=== PATIENT | male | born 1990 | race Caucasian/White ===

== ENCOUNTER 2016-05-02 02:50 | Emergency (ER) | payer OTHER, SELFPAY ==
[2016-05-02] MEDS ORDERED: Sulfameth/Trimethoprim DS 800-160mg TAB ONE (03:12)
[2016-05-02] MEDS ORDERED: Ibuprofen 800 MG TAB ONE (03:12)
--- NOTE | 2016-05-02 03:35 | ERRECORD ---
[facility] EMERGENCY RECORD HPI CELLULITIS (03:14 [facility]) CHIEF COMPLAINT: Patient presents for evaluation of pain, Patient presents for evaluation of swelling. HISTORIAN: History provided by patient, 25M presents with two days of worsening pain and swelling along cleft edge of left buttock. 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 Denies fever, denies change in bowel habits. MECHANISM: Possible mechanism not seen. LOCATION: Symptoms are localized, most severe in the buttock, on the left. TIME COURSE: Gradual onset of symptoms, Symptoms are worsening. ASSOCIATED WITH: No associated symptoms. COMPLICATING FACTORS: No complicating factors. EXACERBATED BY: Patient's condition exacerbated by nothing. RELIEVED BY: Patient's condition relieved by nothing because patient has not tried anything for relief. ROS (03:17 [facility]) CONSTITUTIONAL: Negative constitutional review of systems, Historian denies chills, denies fever. EYES: Negative eye review of systems, Historian denies eye pain, denies eye discharge, denies vision changes. ENT: Negative ears, nose, throat review of systems, Historian denies rhinorrhea, denies sore throat. CARDIOVASCULAR: Negative cardiovascular review of systems, Historian denies chest pain, denies palpitations. RESPIRATORY: Negative respiratory review of systems, Historian denies cough, denies shortness of breath. GI: Negative gastrointestinal review of systems, Historian denies abdominal pain, denies constipation, denies diarrhea, denies nausea, denies vomiting. GENITOURINARY MALE: Negative genitourinary review of systems, Historian denies dysuria, denies hematuria. MUSCULOSKELETAL: Negative musculoskeletal review of systems, Historian denies back pain, denies fall, denies injury, denies neck pain. SKIN: painful localized area of swelling in gluteal cleft. NEUROLOGIC: Negative neurologic review of systems, Historian denies headache. HEMO/LYMPHATIC: Normal hematologic/lymphatic system review, Historian denies abnormal blood clotting. PAST MEDICAL HISTORY (02:55 [facility]) MEDICAL HISTORY: No past medical history, Flu vaccine not up to date, Tetanus immunization up to date, Date of immunization: 2012, Pneumococcal vaccine not up to date. MALE SURGICAL HISTORY: Surgical history of tonsillectomy, Notes: AND ADENOIDS. PSYCHIATRIC HISTORY: No previous psychiatric history. &a-1R&a+25V*p+0X*w3255R*c202B*c15G*c2P*p-0X&a-25V&a+1R Name: Avinash Smith : 1990 M25 MedRec: [id number] AcctNum: [id number] Prepared: lynnette May 02, 2016 03:28 by Interface Page 1 of 3 pMD [facility] EMERGENCY RECORD SOCIAL HISTORY: Patient denies alcohol use, Patient denies drug use, Patient has no smoking history. FAMILY HISTORY: Family history is non-contributory to this case. KNOWN ALLERGIES No Known Drug Allergies CURRENT MEDICATIONS (02:54 [facility]) None VITAL SIGNS (02:54 [facility]) VITAL SIGNS: BP: 152/88, Pulse: 98, Resp: 18, Temp: 98.3 (Oral), Pain: 7, O2 sat: 99 on Room Air, Time: 05/02/2016 02:54. PHYSICAL EXAM (03:17 [facility]) CONSTITUTIONAL: Vital signs reviewed, Patient afebrile, Pulse normal, Blood pressure normal, Respiratory rate normal, Patient appears non toxic, Patient appears pain free, Patient alert and oriented to person, place and time. HEAD: Head exam normal, Head exam included findings of head atraumatic, normocephalic. EYES: Eye exam normal, Eye exam included findings of eyelids normal to inspection, Pupils equally round and reactive to light, Extraocular muscles intact, no nystagmus. ENT: ENT exam normal, Ear exam normal, external ear normal, tympanic membranes normal, no bleeding, Pharynx exam normal, Uvula exam normal, Tonsil exam normal, Mouth exam normal, mucous membranes moist, teeth normal. NECK: Neck exam normal, Neck exam included findings of normal range of motion, Trachea midline, no meningeal signs, no cervical adenopathy, no tenderness. RESPIRATORY CHEST: Respiratory and chest exam normal, Respiratory exam included findings of no respiratory distress, Breath sounds clear. CARDIOVASCULAR: Cardiovascular assessment normal, Cardiovascular exam included findings of heart rate regular rate and rhythm, Heart sounds normal. ABDOMEN MALE: Abdominal exam included findings of abdomen nontender, Bowel sounds normal, no distension, no mass, no pulsatile masses, no peritoneal signs, no rigidity, no guarding, no rebound, Rovsing's sign absent. BACK: Back exam normal, Back exam included findings of normal inspection, range of motion normal, no tenderness. UPPER EXTREMITY: Upper extremity exam normal, Upper extremity exam included findings of inspection normal, Range of motion normal, Motor strength normal, Sensation intact, Radial pulse normal. LOWER EXTREMITY: Lower extremity exam normal, Lower extremity exam included findings of inspection normal, Range of motion normal, Motor strength normal, Sensation intact, Posterior tibial pulse &a-1R&a+25V*p+0X*i9922V*c202B*c15G*c2P*p-0X&a-25V&a+1R Name: Avinash Smith : 1990 M25 MedRec: [id number] AcctNum: [id number] Prepared: Enedina May 02, 2016 03:28 by Interface Page 2 of 3 pMD [facility] EMERGENCY RECORD normal, Pedal pulse normal. NEURO: Neuro exam normal, Neuro exam findings include patient oriented to person, place and time, Speech normal, Gait normal. SKIN: Skin exam included findings of skin warm, dry, and normal in color, no rash, along left edge of gluteal cleft near proximal portion there is an area of induration and swelling that is tender to the touch. Non fluctuant to the touch, no surrounding erythema. PSYCHIATRIC: Psychiatric exam normal, Normal affect. MEDICATION ADMINISTRATION SUMMARY Drug Name: Bactrim DS, Dose Ordered: 1 tab(s), Route: Oral, Status: Given, Time: 03:05/02/2016, Drug Name: Motrin, Dose Ordered: 800 mg, Route: Oral, Status: Given, Time: 05/02/2016, Detailed record available in Medication Service section. DOCTOR NOTES (03:19 [facility]) TEXT: Patient presents with findings consistent with cellulitis. bedside ultrasound shows cobblestoning without fluid collection. No evidence of pilonidal cyst of other abscess. Will start antibiotics and anti-inflammatories, follow up with PMD. PATIENT STATUS: Patient has improved since arrival to emergency department. PATIENT PLAN: The patient will be discharged, The patient will follow up with primary care physician. PROBLEM LIST No recorded problems DIAGNOSIS (03:12 [facility]) FINAL: PRIMARY: CELLULITIS OF BUTTOCK. PRESCRIPTION (03:12 [facility]) Bactrim DS: TABLET : 800 mg-160 mg : ORAL : Quantity: 1 Unit: tab(s) Route: ORAL Schedule: 2 times a day (before meals) Dispense: 14 May substitute. Refills: No Refills . NOTES: No refills. DISPOSITION PATIENT: Disposition Type: Discharge, Disposition: *Discharge Home. (03:12 BOB) Patient left the department. (03:20 KP) Howard: BOB=MD Sana, Conor KMJ LUIS=SHAWN Marshall, Ana MVIL=SHAWN Brandt, Lanny &a-1R&a+25V*p+0X*i2987H*c202B*c15G*c2P*p-0X&a-25V&a+1R Name: Avinash Smith : 1990 M25 MedRec: [id number] AcctNum: [id number] Prepared: Enedina May 02, 2016 03:28 by Interface Page 3 of 3 pMD MTDD
--- NOTE | 2016-05-02 03:37 | PICIS ---
[facility] EMERGENCY RECORD TRIAGE (SunMay 02, 2016 02:53 [facility]) TRIAGE NOTES: Knot to tailbone, painful. (SunMay 02, 2016 02:53 [facility]) PATIENT: NAME: Avinash Smith, AGE: 25, GENDER: male, : [facility] 1990, TIME OF GREET: SunMay 02, 2016 02:50, PREFERRED LANGUAGE: Portuguese, ETHNICITY: Not or , ECODE BILLING MAP: [facility], SSN: [id number], Zip Code: [address], KG WEIGHT: 136.08, HEIGHT/LENGTH: 185.42cm, BMI: 39.58, , , PERSON ID: [id number], PCP: MD Kuhn Kia. (SunMay 02, 2016 02:53 [facility]) PHONE: . (03:10) COMPLAINT: Possible cyst. (SunMay 02, 2016 02:53 [facility]) ADMISSION: URGENCY: 4 Non Urgent, ADMISSION SOURCE: Home, TRANSPORT: CAR, BED: ER -02. (SunMay 02, 2016 02:53 [facility]) ASSESSMENT: Assessment: A&OX4. RR EVEN AND UNLABORED., Symptoms began 3 days ago. (02:55 [facility]) PAIN: Patient complains of pain described as, aching, deep, on a scale 0-10 patient rates pain as 8, Location TAILBONE. (02:55 [facility]) SIRS SCORING: Heart Rate 55-109 (0), Temp range 96.8-101.1 (0), respiratory rate 12-24 (0), Mental Status altered: no (0), Infection or Suspected Infection: No. (02:55 [facility]) TRIAGE SCREENING: Patient denies suicidal ideation, Patient denies presence of domestic violence. (02:55 [facility]) PROVIDERS: TRIAGE NURSE: Ana Marshall RN. (SunMay 02, 2016 02:53 [facility]) VITAL SIGNS: BP 152/88, Pulse 98, Resp 18, Temp 98.3, (Oral), Pain 7, O2 Sat 99, on Room Air, Time 05/02/2016 02:54. (02:54 [facility]) PREVIOUS VISIT ALLERGIES: No Known Drug Allergies. (SunMay 02, 2016 02:53 [facility]) No Known Drug Allergies. (02:55 [facility]) KNOWN ALLERGIES No Known Drug Allergies CURRENT MEDICATIONS (02:54 [facility]) None VITAL SIGNS (02:54 [facility]) VITAL SIGNS: BP: 152/88, Pulse: 98, Resp: 18, Temp: 98.3 (Oral), Pain: 7, O2 sat: 99 on Room Air, Time: 05/02/2016 02:54. NURSING ASSESSMENT: SKIN (03:08 [facility]) CONSTITUTIONAL: Patient arrives ambulatory, Gait steady, History obtained from patient, Patient appears comfortable, Patient cooperative, Patient alert, Oriented to person, place and time, Skin warm, Skin dry, Skin normal in color, Mucous membranes pink, Mucous membranes moist, Patient is well-groomed, Patient complains of AN AREA OF REDNESS AND SWELLING IN BETWEEN BUTTOCKS X 3 DAYS, PATIENT EVALUATED WITH BEDSIDE SONO BY DR. ALVARADO. NO ABSCESS &a-1R&a+25V*p+0X*x1217U*c202B*c15G*c2P*p-0X&a-25V&a+1R Name: Avinash Smith Tito : 1990 M25 MedRec: [id number] AcctNum: [id number] Prepared: SunMay 02, 2016 03:28 by Interface Page 1 of 6 pMD [facility] EMERGENCY RECORD NOTED. WILL BE TREATED WITH ANTIBIOTICS FOR SKIN INFECTION. PAIN: penetrating pain, pressure pain, Onset of pain 04/29/2016 03:11, constant, on a scale 0-10 patient rates pain as 5, Pain exacerbated by nothing, Nothing has been tried to alleviate the pain. SKIN: Skin assessment findings include skin warm, Skin dry, Skin normal in color, Inspection findings include redness, Inspection findings include signs of infection, to BETWEEN THE BUTTOCKS, Inspection findings include swelling, to BETWEEN THE BUTTOCKS. SAFETY: Side rails up, Cart/Stretcher in lowest position, Family at bedside, Call light within reach, Hospital ID band on. NURSING PROCEDURE: DISCHARGE NOTE (03:14 [facility]) DISCHARGE: Patient discharged to home, ambulating without assistance, family driving, accompanied by parent, Summary of Care printed/ provided, Patient requested and was provided an electronic copy of Discharge Instructions, Transition record given to patient, Discharge instructions given to patient, Prescriptions given and instructions on side effects given, Medication reconciliation form given, Above person(s) verbalized understanding of discharge instructions and follow-up care. BELONGINGS: Belongings and valuables with patient at time of discharge include:. MEDICATION ADMINISTRATION SUMMARY Drug Name: Bactrim DS, Dose Ordered: 1 tab(s), Route: Oral, Status: Given, Time: 03:05/02/2016, Drug Name: Motrin, Dose Ordered: 800 mg, Route: Oral, Status: Given, Time: 03:05/02/2016, Detailed record available in Medication Service section. MEDICATION SERVICE ( [facility]) Bactrim DS: Order: Bactrim DS (sulfamethoxazole/trimethoprim) - Dose: 1 tab(s) : Oral Ordered by: Conor Alvarado MD Entered by: Conor Alvarado MD SunMay 02, 2016 03:11 Documented as given by: Lanny Brandt RN SunMay 02, 2016 03:13 Patient, Medication, Dose, Route and Time verified prior to administration. Amount given: 1 TAB, Correct patient, time, route, dose and medication confirmed prior to administration, Patient advised of actions and side-effects prior to administration, Allergies confirmed and medications reviewed prior to administration, Patient in position of comfort, Side rails up, Cart in lowest position, Family at bedside. Motrin: Order: Motrin (ibuprofen) - Dose: 800 mg : Oral &a-1R&a+25V*p+0X*v3030J*c202B*c15G*c2P*p-0X&a-25V&a+1R Name: Avinash Smith Tito : 1990 M25 MedRec: [id number] AcctNum: [id number] Prepared: SunMay 02, 2016 03:28 by Interface Page 2 of 6 D [facility] EMERGENCY RECORD Ordered by: Conor Alvarado MD Entered by: Conor Alvarado MD SunMay 02, 2016 03:11 Documented as given by: Lanny Brandt RN SunMay 02, 2016 03:13 Patient, Medication, Dose, Route and Time verified prior to administration. Amount given: 800MG, Correct patient, time, route, dose and medication confirmed prior to administration, Patient advised of actions and side-effects prior to administration, Allergies confirmed and medications reviewed prior to administration, Patient in position of comfort, Side rails up, Cart in lowest position, Family at bedside. HPI CELLULITIS (03:14 [facility]) CHIEF COMPLAINT: Patient presents for evaluation of pain, Patient presents for evaluation of swelling. HISTORIAN: History provided by patient, 25M presents with two days of worsening pain and swelling along cleft edge of left buttock. 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 Denies fever, denies change in bowel habits. MECHANISM: Possible mechanism not seen. LOCATION: Symptoms are localized, most severe in the buttock, on the left. TIME COURSE: Gradual onset of symptoms, Symptoms are worsening. ASSOCIATED WITH: No associated symptoms. COMPLICATING FACTORS: No complicating factors. EXACERBATED BY: Patient's condition exacerbated by nothing. RELIEVED BY: Patient's condition relieved by nothing because patient has not tried anything for relief. ROS (03:17 [facility]) CONSTITUTIONAL: Negative constitutional review of systems, Historian denies chills, denies fever. EYES: Negative eye review of systems, Historian denies eye pain, denies eye discharge, denies vision changes. ENT: Negative ears, nose, throat review of systems, Historian denies rhinorrhea, denies sore throat. CARDIOVASCULAR: Negative cardiovascular review of systems, Historian denies chest pain, denies palpitations. RESPIRATORY: Negative respiratory review of systems, Historian denies cough, denies shortness of breath. GI: Negative gastrointestinal review of systems, Historian denies abdominal pain, denies constipation, denies diarrhea, denies nausea, denies vomiting. GENITOURINARY MALE: Negative genitourinary review of systems, Historian denies dysuria, denies hematuria. MUSCULOSKELETAL: Negative musculoskeletal review of systems, Historian denies back pain, denies fall, denies injury, denies neck pain. SKIN: painful localized area of swelling in gluteal &a-1R&a+25V*p+0X*o7452Z*c202B*c15G*c2P*p-0X&a-25V&a+1R Name: Sarah Avinash D : 1990 M25 MedRec: [id number] AcctN: [id number] Prepared: Enedina May 02, 2016 03:28 by Interface Page 3 of 6 pMD [facility] EMERGENCY RECORD cleft. NEUROLOGIC: Negative neurologic review of systems, Historian denies headache. HEMO/LYMPHATIC: Normal hematologic/lymphatic system review, Historian denies abnormal blood clotting. PAST MEDICAL HISTORY (02:55 [facility]) MEDICAL HISTORY: No past medical history, Flu vaccine not up to date, Tetanus immunization up to date, Date of immunization: 2012, Pneumococcal vaccine not up to date. MALE SURGICAL HISTORY: Surgical history of tonsillectomy, Notes: AND ADENOIDS. PSYCHIATRIC HISTORY: No previous psychiatric history. SOCIAL HISTORY: Patient denies alcohol use, Patient denies drug use, Patient has no smoking history. FAMILY HISTORY: Family history is non-contributory to this case. PHYSICAL EXAM (03:17 [facility]) CONSTITUTIONAL: Vital signs reviewed, Patient afebrile, Pulse normal, Blood pressure normal, Respiratory rate normal, Patient appears non toxic, Patient appears pain free, Patient alert and oriented to person, place and time. HEAD: Head exam normal, Head exam included findings of head atraumatic, normocephalic. EYES: Eye exam normal, Eye exam included findings of eyelids normal to inspection, Pupils equally round and reactive to light, Extraocular muscles intact, no nystagmus. ENT: ENT exam normal, Ear exam normal, external ear normal, tympanic membranes normal, no bleeding, Pharynx exam normal, Uvula exam normal, Tonsil exam normal, Mouth exam normal, mucous membranes moist, teeth normal. NECK: Neck exam normal, Neck exam included findings of normal range of motion, Trachea midline, no meningeal signs, no cervical adenopathy, no tenderness. RESPIRATORY CHEST: Respiratory and chest exam normal, Respiratory exam included findings of no respiratory distress, Breath sounds clear. CARDIOVASCULAR: Cardiovascular assessment normal, Cardiovascular exam included findings of heart rate regular rate and rhythm, Heart sounds normal. ABDOMEN MALE: Abdominal exam included findings of abdomen nontender, Bowel sounds normal, no distension, no mass, no pulsatile masses, no peritoneal signs, no rigidity, no guarding, no rebound, Rovsing's sign absent. BACK: Back exam normal, Back exam included findings of normal inspection, range of motion normal, no tenderness. UPPER EXTREMITY: Upper extremity exam normal, Upper extremity exam included findings of inspection normal, Range of motion normal, Motor strength normal, Sensation intact, Radial pulse normal. &a-1R&a+25V*p+0X*c4218U*c202B*c15G*c2P*p-0X&a-25V&a+1R Name: Avinash Smith : 1990 M25 MedRec: [id number] AcctNum: [id number] Prepared: SunMay 02, 2016 03:28 by Interface Page 4 of 6 pMD [facility] EMERGENCY RECORD LOWER EXTREMITY: Lower extremity exam normal, Lower extremity exam included findings of inspection normal, Range of motion normal, Motor strength normal, Sensation intact, Posterior tibial pulse normal, Pedal pulse normal. NEURO: Neuro exam normal, Neuro exam findings include patient oriented to person, place and time, Speech normal, Gait normal. SKIN: Skin exam included findings of skin warm, dry, and normal in color, no rash, along left edge of gluteal cleft near proximal portion there is an area of induration and swelling that is tender to the touch. Non fluctuant to the touch, no surrounding erythema. PSYCHIATRIC: Psychiatric exam normal, Normal affect. EVENTS TRANSFER: Triage to Emergency Emergency Room -02. (SunMay 02, 2016 02:53 [facility]) Removed from Emergency Emergency Room -02. (03:20 [facility]) DOCTOR NOTES (03:19 [facility]) TEXT: Patient presents with findings consistent with cellulitis. bedside ultrasound shows cobblestoning without fluid collection. No evidence of pilonidal cyst of other abscess. Will start antibiotics and anti-inflammatories, follow up with PMD. PATIENT STATUS: Patient has improved since arrival to emergency department. PATIENT PLAN: The patient will be discharged, The patient will follow up with primary care physician. PROBLEM LIST No recorded problems DIAGNOSIS (03:12 [facility]) FINAL: PRIMARY: CELLULITIS OF BUTTOCK. DISPOSITION PATIENT: Disposition Type: Discharge, Disposition: *Discharge Home. (03:12 JJAC) Patient left the department. (03:20 [facility]) INSTRUCTION (03:13 [facility]) DISCHARGE: CELLULITIS. FOLLOWUP: MD Bam, Ke[place], [facility], [address], [facility] [address], [phone]. SPECIAL: Start antibiotics. 600-800mg of Motrin every 6 hours for pain, but not for more than 4 days in a row. Ring or Donut pillow for relief of pain while seated. Return to the ED or PMD if it gets worse instead of better. PRESCRIPTION (03:12 [facility]) Bactrim DS: TABLET : 800 mg-160 mg : ORAL : Quantity: 1 &a-1R&a+25V*p+0X*r7223P*c202B*c15G*c2P*p-0X&a-25V&a+1R Name: Avinash Smith : 1990 5 MedRec: [id number] AcctNum: [id number] Prepared: SunMay 02, 2016 03:28 by Interface Page 5 of 6 pMD [facility] EMERGENCY RECORD Unit: tab(s) Route: ORAL Schedule: 2 times a day (before meals) Dispense: 14 May substitute. Refills: No Refills . NOTES: No refills. IMAGING (03:19 [facility]) *DISCHARGE INSTRUCTIONS RECEIPT: Image captured from scanner. *SUPPLY CHARGE SHEET: Image captured from scanner. ADMIN (03:21 [facility]) DIGITAL SIGNATURE: MD Alvarado Jason. Howard: BOB=MD Alvarado Jason KMOR=SHAWN Marshall, Ana MVIL=SHAWN Brandt, Lanny &a-1R&a+25V*p+0X*h4906W*c202B*c15G*c2P*p-0X&a-25V&a+1R Name: Avinash Smith : 1990 5 MedRec: [id number] AcctNum: [id number] Prepared: SunMay 02, 2016 03:28 by Interface Page 6 of 6 pMD MTDD
== END 2016-05-02 03:15 | disposition home or self-care (01) ==
LOC: BURERS 02:50
DX: L03.317 Cellulitis of buttock (principal)
CPT/HCPCS: 99283

== ENCOUNTER 2016-05-04 00:39 | Emergency (ER) | payer SELFPAY ==
[2016-05-04] MEDS ORDERED: Lidocaine 1% 20 ML MDV ONE (01:49)
[2016-05-04] MEDS ORDERED: Amoxicillin/Potassium Clav 875 MG TAB ONE (02:10)
[2016-05-04] MEDS ORDERED: HYDROcodone/Acetaminophen 10/325 mg Tablet ONE (02:13)
--- NOTE | 2016-05-04 02:32 | ERRECORD ---
[facility] EMERGENCY RECORD HPI ABSCESS (02:07 [facility]) CHIEF COMPLAINT: Patient presents for evaluation of swelling, Patient presents for evaluation of pain. HISTORIAN: History provided by patient, seen here 48 hours ago with neg US for abscess and started on Bactrim ds. has noted increased redness swelling and pain. LOCATION: Symptoms are localized, most severe to gluteal cleft left side. QUALITY: Pain is dull in nature, described as aching. SEVERITY: Current severity of pain rated as 4/10. TIME COURSE: Gradual onset of symptoms, 3, Symptoms are worsening. ASSOCIATED WITH: No associated chills, Associated with drainage, No associated fever, Associated with warmth. COMPLICATING FACTORS: No complicating factors for wound healing. EXACERBATED BY: Patient's condition exacerbated by pressure in the area. RELIEVED BY: Patient's condition relieved by nothing. TETANUS: Tetanus status up to date. ROS (02:07 DHAM) CONSTITUTIONAL: Historian denies chills, denies fatigue, denies fever, reports night sweats. RESPIRATORY: Historian denies cough, denies shortness of breath, denies sputum. GI: Historian denies abdominal pain, denies diarrhea, denies nausea, denies vomiting. GENITOURINARY MALE: Historian denies dysuria, denies urinary frequency, denies urinary urgency. SKIN: Historian denies cellulitis, denies rash, reports skin changes, reports skin lesions. NEUROLOGIC: Historian denies headache, denies paresthesias. NOTES: All systems reviewed, negative except as described above. PAST MEDICAL HISTORY MEDICAL HISTORY: No past medical history, Flu vaccine not up to date, Tetanus immunization up to date, Pneumococcal vaccine not up to date. (00:56 MEGS) MALE SURGICAL HISTORY: Surgical history of tonsillectomy, Notes: AND ADENOIDS. verified with patient on 05/04/16. (00:56 MEGS) PSYCHIATRIC HISTORY: No previous psychiatric history. (00:56 MEGS) SOCIAL HISTORY: Patient drinks socially, once a month, Patient denies drug use, Patient has no smoking history, Lives at home, with family. (00:56 MEGS) FAMILY HISTORY: Family history is non-contributory to this case. (00:56 MEGS) NOTES: I have reviewed the nursing documentation regarding PMHX, social hx, family hx, and surgical history as well as vitals and triage notes and agree. (02:16 [facility]) &a-1R&a+25V*p+0X*b4621R*c202B*c15G*c2P*p-0X&a-25V&a+1R Name: Avinash Smith : 1990 M25 MedRec: [id number] AcctNum: [id number] Prepared: SunMay 04, 2016 05:28 by Interface Page 1 of 3 pMD [facility] EMERGENCY RECORD KNOWN ALLERGIES No Known Drug Allergies CURRENT MEDICATIONS (00:54 MEGS) Bactrim DS: TABLET : Strength - 800 mg-160 mg : ORAL Patient Dose: 1 tab(s) Oral 2 times a day (before meals). VITAL SIGNS VITAL SIGNS: BP: 130/74, Pulse: 102, Resp: 18, Temp: 99.3 (Oral), Pain: 8, O2 sat: 97 on Room Air, Time: 05/04/2016 00:52. (00:52 MEGS) BP: 112/67, Pulse: 92, Resp: 16, Temp: 99.3 (Oral), Pain: 4, O2 sat: 96 on Room Air, Time: 05/04/2016 01:46. (01:46 MEGS) PHYSICAL EXAM (02:07 [facility]) CONSTITUTIONAL: Vital signs reviewed, Patient afebrile, Pulse normal, Blood pressure normal, Respiratory rate normal, Patient appears non toxic, Patient appears in pain, in mild pain distress, Patient alert and oriented to person, place and time. RESPIRATORY CHEST: Breath sounds clear, No wheezing, No rales, No rhonchi. CARDIOVASCULAR: Cardiovascular exam included findings of heart rate regular rate and rhythm, Heart sounds normal, Point of maximal impulse normal. ABDOMEN MALE: Abdominal exam included findings of abdomen nontender, Bowel sounds normal, Liver normal, Spleen normal, no distension, no mass, no peritoneal signs. NEURO: Donya coma scale 15, Neuro exam findings include patient oriented to person, place and time, Speech normal, Gait normal, Cranial nerves intact. SKIN: Skin exam included findings of skin warm, dry, and normal in color, no rash, just to the left of the gluteal cleft has a 6x5cm tender, erythematous, indurated area. This appears to be a typical infected pilonidal cyst. PSYCHIATRIC: Psychiatric exam included findings of patient oriented to person place and time, Normal affect, Judgment normal, Insight normal. MEDICATION ADMINISTRATION SUMMARY Drug Name: *[place], Dose Ordered: 1 tab(s), Route: Oral, Status: Given, Time: 02:15 05/04/2016, Drug Name: Augmentin, Dose Ordered: 875 mg, Route: Oral, Status: Given, Time: 02:12 05/04/2016, *Additional information available in notes, Detailed record available in Medication Service section. PROBLEM LIST No recorded problems &a-1R&a+25V*p+0X*i9297O*c202B*c15G*c2P*p-0X&a-25V&a+1R Name: Avinash Smith Tito : 1990 M25 MedRec: [id number] AcctNum: [id number] Prepared: Judi May 04, 2016 05:28 by Interface Page 2 of 3 pMD [facility] EMERGENCY RECORD DIAGNOSIS (: [facility]) FINAL: PRIMARY: PILONIDAL CYST WITH ABSCESS. PRESCRIPTION (:17 [facility]) Augmentin: TABLET : 875 mg-125 mg : ORAL : Quantity: 1 Unit: tab(s) Route: ORAL Schedule: 2 times a day (with meals) Dispense: 20 Unit: tab(s) May substitute. Refills: No Refills . NOTES: No refills. DISPOSITION PATIENT: Disposition Type: Discharge, Disposition: *Discharge Home. (: [facility]) Patient left the department. (02: [facility]) Howard: OSMAR=MD Mariella, Raheel NIETOS=Dante RN, Gladys &a-1R&a+25V*p+0X*d8331Q*c202B*c15G*c2P*p-0X&a-25V&a+1R Name: Sarah Avinash D : 1990 M25 MedRec: [id number] AcctNum: [id number] Prepared: SunMay 04, 2016 05:28 by Interface Page 3 of 3 pMD MTDD
--- NOTE | 2016-05-04 02:38 | PICIS ---
[facility] EMERGENCY RECORD TRIAGE (SunMay 04, 2016 00:54 MEGS) TRIAGE NOTES: Patient complains of abscess for approx. 1 week. Patient reports being seen in ED for abscess on Sunday, was rx Bactrim. Patient has been taking medication as rx, abscess continues to increase in size and severity. (SunMay 04, 2016 00:54 MEGS) PATIENT: NAME: Avinash Smith, AGE: 25, GENDER: male, : Judi 1990, TIME OF GREET: SunMay 04, 2016 00:39, PREFERRED LANGUAGE: Russian, ETHNICITY: Not or , ECODE BILLING MAP: [facility], SSN: [id number], Zip Code: [address], KG WEIGHT: [phone], PHONE: , , , PERSON ID: [id number], PAYMENT: [employer] Self Pay, PCP: Unknown. (SunMay 04, 2016 00:54 MEGS) COMPLAINT: ABSCESS. (SunMay 04, 2016 00:54 MEGS) ADMISSION: URGENCY: 3 Urgent, ADMISSION SOURCE: Home, TRANSPORT: Walk-in, BED: ER -05. (SunMay 04, 2016 00:54 MEGS) ASSESSMENT: Assessment: Patient complains of abscess - mid buttocks., Symptoms began 1 week ago. (00:56 MEGS) PAIN: Patient complains of pain described as, throbbing, on a scale 0-10 patient rates pain as 8, Pain is constant. (00:56 MEGS) IMMUNIZATIONS: Flu vaccine not up to date, Tetanus immunization up to date, Pneumococcal vaccine not up to date. (00:56 MEGS) TRIAGE SCREENING: Patient denies suicidal ideation, Patient denies presence of domestic violence. (00:56 MEGS) TREATMENTS IN PROGRESS: Medications Given, Bactrim Motrin at 21:00. (00:56 MEGS) PROVIDERS: TRIAGE NURSE: Gladys Howell RN. (SunMay 04, 2016 00:54 MEGS) VITAL SIGNS: BP 130/74, Pulse 102, Resp 18, Temp 99.3, (Oral), Pain 8, O2 Sat 97, on Room Air, Time 05/04/2016 00:52. (00:52 MEGS) PREVIOUS VISIT ALLERGIES: No Known Drug Allergies. (SunMay 04, 2016 00:54 MEGS) No Known Drug Allergies. (00:56 MEGS) KNOWN ALLERGIES No Known Drug Allergies CURRENT MEDICATIONS (00:54 MEGS) Bactrim DS: TABLET : Strength - 800 mg-160 mg : ORAL Patient Dose: 1 tab(s) Oral 2 times a day (before meals). VITAL SIGNS VITAL SIGNS: BP: 130/74, Pulse: 102, Resp: 18, Temp: 99.3 (Oral), Pain: 8, O2 sat: 97 on Room Air, Time: 05/04/2016 00:52. (00:52 MEGS) BP: 112/67, Pulse: 92, Resp: 16, Temp: 99.3 (Oral), Pain: 4, O2 sat: 96 on Room Air, Time: 05/04/2016 01:46. (01:46 MEGS) NURSING ASSESSMENT: SKIN (00:56 MEGS) &a-1R&a+25V*p+0X*f5440O*c202B*c15G*c2P*p-0X&a-25V&a+1R Name: Avinash Smith : 1990 M25 MedRec: [id number] AcctNum: [id number] Prepared: SunMay 04, 2016 05:35 by Interface Page [address] [facility] EMERGENCY RECORD CONSTITUTIONAL: Patient arrives ambulatory, Gait steady, History obtained from patient, Patient appears, obese, uncomfortable, Patient cooperative, Patient alert, Oriented to person, place and time, Skin warm, Skin dry, Skin normal in color, Mucous membranes pink, Mucous membranes moist, Patient is well-groomed, Patient complains of pilonidal cyst, Patient has a pilonidal cyst; reports being seen at ED on Sunday - ultrasound performed and antibiotics prescribed. Cyst has worsen on the past 3 - 4 days with antibiotic treatment. PAIN: throbbing pain, constant, on a scale 0-10 patient rates pain as 8, Pain exacerbated by, sitting up, sitting upright, Nothing has been tried to alleviate the pain. SKIN: Skin assessment findings include skin warm, Skin dry, Skin normal in color, Inspection findings include: No pressure ulcer to the shoulder, Inspection findings include no pressure ulcer to the elbow, Inspection findings include no pressure ulcers to the hip, Inspection findings include no pressure ulcer to the sacrum, Inspection findings include no pressure ulcer to the heel, Inspection findings include no pressure ulcer, Inspection findings include redness, to sacrococcygeal area, Inspection findings include signs of infection, to sacrococcygeal area, cyst appears to be 10cm x 8 cm, Inspection findings include no signs of trauma, Inspection findings include swelling, to sacrococcygeal area. DEACON SCALE: (4) Sensory perception has no impairment, (3) Skin is occasionally moist, (4) Patient walks frequently, (4) No mobility limitations, (3) Adequate nutrition, (3) Patient has no apparent problem moving. SAFETY: Side rails up, Cart/Stretcher in lowest position, Call light within reach, Hospital ID band on. NURSING PROCEDURE: DISCHARGE NOTE (02:23 [facility]) DISCHARGE: Patient discharged to home, ambulating without assistance, family driving, accompanied by //partner, Discharge instructions given to patient, Discharge instructions given to , Prescriptions given and instructions on side effects given, Above person(s) verbalized understanding of discharge instructions and follow-up care, Patient treated and evaluated by physician. BELONGINGS: Belongings and valuables with patient at time of discharge include:, Belongings sent home with family member, Valuables sent home with family. SAFETY: Side rails up, Cart/Stretcher in lowest position, Family at bedside, Call light within reach, Hospital ID band on. ORDER DETAILS Order Name: Miscellaneous Nurse Order(s), Status: Done, Time: 01:58 05/04/2016, User: [facility], - Ordered for: MD Mariella, Raheel, &a-1R&a+25V*p+0X*u2430E*c202B*c15G*c2P*p-0X&a-25V&a+1R Name: Avinash Smith : 1990 M25 MedRec: [id number] AcctNum: [id number] Prepared: Judi May 04, 2016 05:35 by Interface Page [address] [facility] EMERGENCY RECORD - Entered by: SHAWN Howell, Gladys - Judi May 04, 2016 01:58, - Quantity: 1. MEDICATION ADMINISTRATION SUMMARY Drug Name: *Logan, Dose Ordered: 1 tab(s), Route: Oral, Status: Given, Time: 02:15 05/04/2016, Drug Name: Augmentin, Dose Ordered: 875 mg, Route: Oral, Status: Given, Time: 02:12 05/04/2016, *Additional information available in notes, Detailed record available in Medication Service section. MEDICATION SERVICE Augmentin: Order: Augmentin (amoxicillin trihydrate/potassium clavulanate) - Dose: 875 mg : Oral Schedule: Now Ordered by: Raheel Wolff MD Entered by: Raheel Wolff MD [facility] May 04, 2016 02:09 , Acknowledged by: Gladys Howell RN [facility] May 04, 2016 02:12 Documented as given by: Gladys Howell RN [facility] May 04, 2016 02:12 Patient, Medication, Dose, Route and Time verified prior to administration. Amount given: 875mg, Site: Medication administered P.O., Patient appears Awake and alert- acceptable, Correct patient, time, route, dose and medication confirmed prior to administration, Patient advised of actions and side-effects prior to administration, Allergies confirmed and medications reviewed prior to administration, Patient tolerated procedure well, Patient in position of comfort, Side rails up, Cart in lowest position, Family at bedside, Call light in reach. Logan: Order: Logan (hydrocodone bitartrate/acetaminophen) - Dose: 1 tab(s) : Oral Schedule: Now Notes: 10mg Ordered by: Raheel Wolff MD Entered by: Raheel Wolff MD [facility] May 04, 2016 02:13 , Acknowledged by: Gladys Howell RN [facility] May 04, 2016 02:15 Documented as given by: Gladys Howell RN [facility] May 04, 2016 02:15 Patient, Medication, Dose, Route and Time verified prior to administration. Verbal order read back and verified, Amount given: 10mg - 325mg, Site: Medication administered P.O., Patient appears Awake and alert- acceptable, Correct patient, time, route, dose and medication confirmed prior to administration, Patient advised of actions and side-effects prior to administration, Allergies confirmed and medications reviewed prior to administration, Patient tolerated procedure well, Patient in position of comfort, Side rails up, Cart in lowest position, Family at bedside, Call light in reach. HPI ABSCESS (02:07 [facility]) CHIEF COMPLAINT: Patient presents for evaluation of &a-1R&a+25V*p+0X*u2554V*c202B*c15G*c2P*p-0X&a-25V&a+1R Name: Avinash Smith : 1990 M25 MedRec: [id number] AcctNum: [id number] Prepared: SunMay 04, 2016 05:35 by Interface Page [address] [facility] EMERGENCY RECORD swelling, Patient presents for evaluation of pain. HISTORIAN: History provided by patient, seen here 48 hours ago with neg US for abscess and started on Bactrim ds. has noted increased redness swelling and pain. LOCATION: Symptoms are localized, most severe to gluteal cleft left side. QUALITY: Pain is dull in nature, described as aching. SEVERITY: Current severity of pain rated as 4/10. TIME COURSE: Gradual onset of symptoms, 3, Symptoms are worsening. ASSOCIATED WITH: No associated chills, Associated with drainage, No associated fever, Associated with warmth. COMPLICATING FACTORS: No complicating factors for wound healing. EXACERBATED BY: Patient's condition exacerbated by pressure in the area. RELIEVED BY: Patient's condition relieved by nothing. TETANUS: Tetanus status up to date. [facility] CONSTITUTIONAL: Historian denies chills, denies fatigue, denies fever, reports night sweats. RESPIRATORY: Historian denies cough, denies shortness of breath, denies sputum. GI: Historian denies abdominal pain, denies diarrhea, denies nausea, denies vomiting. GENITOURINARY MALE: Historian denies dysuria, denies urinary frequency, denies urinary urgency. SKIN: Historian denies cellulitis, denies rash, reports skin changes, reports skin lesions. NEUROLOGIC: Historian denies headache, denies paresthesias. NOTES: All systems reviewed, negative except as described above. PAST MEDICAL HISTORY MEDICAL HISTORY: No past medical history, Flu vaccine not up to date, Tetanus immunization up to date, Pneumococcal vaccine not up to date. (00:56 MEGS) MALE SURGICAL HISTORY: Surgical history of tonsillectomy, Notes: AND ADENOIDS. verified with patient on 05/04/16. (00:56 MEGS) PSYCHIATRIC HISTORY: No previous psychiatric history. (00:56 MEGS) SOCIAL HISTORY: Patient drinks socially, once a month, Patient denies drug use, Patient has no smoking history, Lives at home, with family. (00:56 MEGS) FAMILY HISTORY: Family history is non-contributory to this case. (00:56 MEGS) NOTES: I have reviewed the nursing documentation regarding PMHX, social hx, family hx, and surgical history as well as vitals and triage notes and agree. (02:16 [facility]) PHYSICAL EXAM (02:07 [facility]) &a-1R&a+25V*p+0X*r0840V*c202B*c15G*c2P*p-0X&a-25V&a+1R Name: Avinash Smith : 1990 M25 MedRec: [id number] AcctNum: [id number] Prepared: SunMay 04, 2016 05:35 by Interface Page [address] [facility] EMERGENCY RECORD CONSTITUTIONAL: Vital signs reviewed, Patient afebrile, Pulse normal, Blood pressure normal, Respiratory rate normal, Patient appears non toxic, Patient appears in pain, in mild pain distress, Patient alert and oriented to person, place and time. RESPIRATORY CHEST: Breath sounds clear, No wheezing, No rales, No rhonchi. CARDIOVASCULAR: Cardiovascular exam included findings of heart rate regular rate and rhythm, Heart sounds normal, Point of maximal impulse normal. ABDOMEN MALE: Abdominal exam included findings of abdomen nontender, Bowel sounds normal, Liver normal, Spleen normal, no distension, no mass, no peritoneal signs. NEURO: Dennison coma scale 15, Neuro exam findings include patient oriented to person, place and time, Speech normal, Gait normal, Cranial nerves intact. SKIN: Skin exam included findings of skin warm, dry, and normal in color, no rash, just to the left of the gluteal cleft has a 6x5cm tender, erythematous, indurated area. This appears to be a typical infected pilonidal cyst. PSYCHIATRIC: Psychiatric exam included findings of patient oriented to person place and time, Normal affect, Judgment normal, Insight normal. EVENTS TRANSFER: Triage to Emergency Emergency Room -. (SunMay 04, 2016 00:54 MEGS) Removed from Emergency Emergency Room -05. (02:26 MEGS) O2SAT INTERPRETATION (02:15 [facility]) O2SAT: Single pulse oximetry, Oxygen saturation 96%, on room air, Oxygen saturation interpretation: Normal, Intervention required: patient observed. INCISION AND DRAINAGE INCISION AND DRAINAGE: Side and/or site verified, Patient identification confirmed, Sterile procedures observed, Verbal consent obtained, Incision and drainage indicated for cutaneous abscess, There are no contraindications, 1% Lidocaine with epinephrine used, 8 mLs, Incision and drainage, Incision was made over area of fluctuance, Explored for loculations, Packed with sterile gauze, Drained serosanguinous, Amount (mLs) <1ml, After procedure, wound dressed, After procedure, neurovascular status normal, There were no complications, Tetanus status not up to date, tetanus immunization ordered, Patient tolerated the procedure well. (02:07 [facility]) Side and/or site verified, Patient identification confirmed, Sterile procedures observed, Verbal consent obtained, Incision and drainage indicated for, infected pilonidal cyst, There are no contraindications, 1% Lidocaine without epinephrine used, 10 mLs, &a-1R&a+25V*p+0X*l2073Q*c202B*c15G*c2P*p-0X&a-25V&a+1R Name: Avinash Smith Tito : 1990 M25 MedRec: [id number] AcctNum: [id number] Prepared: [facility] May 04, 2016 05:35 by Interface Page [address] [facility] EMERGENCY RECORD Incision and drainage of pilonidal cyst, simple, Incision was made over area of fluctuance, Explored for loculations, Packed with sterile gauze, Drained serosanguinous, Amount (mLs) 5ml, After procedure, wound dressed, After procedure, neurovascular status normal, There were no complications, Tetanus status up to date, Patient tolerated the procedure well, packed with 15cm of 1/2 inch plain guaze. (02:21 [facility]) PROBLEM LIST No recorded problems DIAGNOSIS (02:17 [facility]) FINAL: PRIMARY: PILONIDAL CYST WITH ABSCESS. DISPOSITION PATIENT: Disposition Type: Discharge, Disposition: *Discharge Home. (02:17 [facility]) Patient left the department. (02:26 MEGS) INSTRUCTION (02:19 [facility]) DISCHARGE: PILONIDAL CYST, INFECTED (I AND D). SPECIAL: Augmentin 875mg twice a day for 10 days Motrin 600-800mg every six hours as needed for pain. Return here or see your pcp for repacking tomorrow. out of work tomorrow. PRESCRIPTION (02:17 [facility]) Augmentin: TABLET : 875 mg-125 mg : ORAL : Quantity: 1 Unit: tab(s) Route: ORAL Schedule: 2 times a day (with meals) Dispense: 20 Unit: tab(s) May substitute. Refills: No Refills . NOTES: No refills. IMAGING (02:25 MEGS) *DISCHARGE INSTRUCTIONS RECEIPT: Image captured from scanner. *SUPPLY CHARGE SHEET: Image captured from scanner. ADMIN (05:21 [facility]) DIGITAL SIGNATURE: MD Wolff Darren. Howard: [facility]=MD Wolff Darren MEGS=SHAWN Howell, Gladys &a-1R&a+25V*p+0X*l9743K*c202B*c15G*c2P*p-0X&a-25V&a+1R Name: SarahAvinash Tito : 1990 M25 MedRec: [id number] AcctNum: [id number] Prepared: Judi May 04, 2016 05:35 by Interface Page 6 of 6 pMD MTDD
== END 2016-05-04 02:23 | disposition home or self-care (01) ==
LOC: BURERS 00:39
DX: L05.01 Pilonidal cyst with abscess (principal)
CPT/HCPCS: 10080; J2001

== ENCOUNTER 2016-05-05 00:03 | Emergency (ER) | payer SELFPAY ==
[2016-05-05] MEDS ORDERED: HYDROcodone/Acetaminophen 10/325 mg Tablet ONE (01:02)
[2016-05-05] MEDS ORDERED: Ibuprofen 800 MG TAB ONE (01:02)
--- NOTE | 2016-05-05 01:28 | ERRECORD ---
[facility] EMERGENCY RECORD HPI WOUND CHECK (00:31 JPIP) CHIEF COMPLAINT: Patient presents for evaluation of Buttock, patient had I&D last night and is here for packing change. HISTORIAN: History provided by patient. LOCATION: Symptoms are localized. QUALITY: Pain is dull in nature. SEVERITY: Current severity of pain rated as 9/10. TIME COURSE: Symptoms are improving. ASSOCIATED WITH: No associated fever. EXACERBATED BY: Patient's condition exacerbated by walking, Patient's condition exacerbated by sitting. RELIEVED BY: Patient's condition relieved by nothing. ROS (00:41 JPIP) CONSTITUTIONAL: Historian denies fever. GI: Historian denies nausea, denies vomiting. SKIN: Historian reports skin changes, reports skin lesions. NOTES: All systems reviewed, negative except as described above. PAST MEDICAL HISTORY MEDICAL HISTORY: No past medical history, Flu vaccine not up to date, Tetanus immunization up to date, Pneumococcal vaccine not up to date. (00:19 WJAN) MALE SURGICAL HISTORY: Surgical history of tonsillectomy, Notes: AND ADENOIDS. verified with patient on 05/05/16. (00:19 WJAN) PSYCHIATRIC HISTORY: No previous psychiatric history. (00:19 WJAN) SOCIAL HISTORY: Patient drinks socially, once a month, Patient denies drug use, Patient has no smoking history, Lives at home, with family. (00:19 WJAN) FAMILY HISTORY: Family history is non-contributory to this case. (00:19 WJAN) NOTES: Nursing records reviewed, Old chart reviewed, Medication list reviewed. (00:43 JPIP) KNOWN ALLERGIES No Known Drug Allergies CURRENT MEDICATIONS (00:12 WJAN) Bactrim DS: TABLET : Strength - 800 mg-160 mg : ORAL Patient Dose: 1 tab(s) Oral 2 times a day (before meals). Augmentin: TABLET : Strength - 875 mg-125 mg : ORAL Patient Dose: 1 tab(s) Oral 2 times a day (with meals). VITAL SIGNS (00:09 WJAN) VITAL SIGNS: BP: 129/91, Pulse: 89, Resp: 16 (Non-Labored), Temp: &a-1R&a+25V*p+0X*d6010U*c202B*c15G*c2P*p-0X&a-25V&a+1R Name: Avinash Smith : 1990 M25 MedRec: [id number] AcctNum: [id number] Prepared: SunMay 05, 2016 01:15 by Interface Page 1 of 2 pMD [facility] EMERGENCY RECORD 98.2 (Oral), Pain: 9, O2 sat: 99 on Room Air, Time: 05/05/2016 00:09. PHYSICAL EXAM (00:41 JPIP) CONSTITUTIONAL: Vital signs reviewed, Patient afebrile, Pulse normal, Blood pressure, hypertensive, Respiratory rate normal, Patient appears in pain, in mild pain distress, Patient alert and oriented to person, place and time. HEAD: Head exam included findings of head atraumatic, normocephalic. EYES: Eye exam included findings of eyelids normal to inspection, Conjunctiva normal, Sclera normal, no periorbital ecchymosis, no periorbital edema, no periorbital erythema. RESPIRATORY CHEST: Respiratory exam included findings of no respiratory distress. NEURO: [place] coma scale 15. SKIN: Skin exam included findings of skin warm, dry, and normal in color, dressing has moderate blood and purulent material present. no active bleeding. packing removed. PSYCHIATRIC: Normal affect. MEDICATION ADMINISTRATION SUMMARY Drug Name: [place], Dose Ordered: 10 mg, Route: Oral, Status: Given, Time: 01:00 05/05/2016, Drug Name: Motrin, Dose Ordered: 800 mg, Route: Oral, Status: Given, Time: 01:00 05/05/2016, Detailed record available in Medication Service section. PROBLEM LIST No recorded problems DIAGNOSIS (00:31 JPIP) FINAL: PRIMARY: wound check - packing change. PRESCRIPTION (00:47 JPIP) Ultram: TABLET : 50 mg : ORAL : Quantity: 1-2 Unit: tab(s) Route: ORAL Schedule: every 8 hours PRN Dispense: 30 May substitute. Refills: No Refills . NOTES: for pain No refills. DISPOSITION PATIENT: Disposition Type: Discharge, Disposition: *Discharge Home, Condition: Good. (00:31 JPIP) Patient left the department. (01:09 DEREK) Howard: NIYA=DO Aranda Joseph WJAN=SHAWN Snow, Peg &a-1R&a+25V*p+0X*r4372T*c202B*c15G*c2P*p-0X&a-25V&a+1R Name: Avinash Smith : 1990 M25 MedRec: [id number] AcctNum: [id number] Prepared: SunMay 05, 2016 01:15 by Interface Page 2 of 2 pMD MTDD
--- NOTE | 2016-05-05 01:29 | PICIS ---
[facility] EMERGENCY RECORD TRIAGE (00:11 WAPR) TRIAGE NOTES: Had abscess drained last night, told to return to have it repacked tonight. (00:11 WAPR) PATIENT: NAME: Avinash Smith, AGE: 25, GENDER: male, : [facility] 1990, TIME OF GREET: SunMay 05, 2016 00:04, PREFERRED LANGUAGE: Faroese, ETHNICITY: Not or , ECODE BILLING MAP: [facility], SSN: [id number], Zip Code: [address], KG WEIGHT: [phone], PHONE: , , , PERSON ID: [id number], PAYMENT: [employer] Self Pay, PCP: Sarah Cedillo. (00:11 WAPR) COMPLAINT: Repack abscess. (00:11 WAPR) ADMISSION: URGENCY: 4 Non Urgent, ADMISSION SOURCE: Home, TRANSPORT: Walk-in, BED: TRIAGE. (00:11 WAPR) ASSESSMENT: Additional Triage notes: Pt reports he was told to return for abscess repacking. Pt A&Ox4, NAD, breathing non-labored. (00:19 WJAN) IMMUNIZATIONS: Flu vaccine not up to date, Tetanus immunization up to date, Pneumococcal vaccine not up to date. (00:19 WJAN) SIRS SCORING: Heart Rate 55-109 (0), Temp range 96.8-101.1 (0), respiratory rate 12-24 (0), Mental Status altered: no (0). (00:19 WJAN) TRIAGE SCREENING: Patient denies suicidal ideation, Patient denies presence of domestic violence. (00:19 WJAN) PROVIDERS: TRIAGE NURSE: Peg Snow RN. (00:11 WAPR) VITAL SIGNS: BP 129/91, Pulse 89, Resp 16, (Non-Labored), Temp 98.2, (Oral), Pain 9, O2 Sat 99, on Room Air, Time 05/05/2016 00:09. (00:09 WAPR) PREVIOUS VISIT ALLERGIES: No Known Drug Allergies. (00:11 WAPR) No Known Drug Allergies. (00:19 WJAN) KNOWN ALLERGIES No Known Drug Allergies CURRENT MEDICATIONS (00:12 WAPR) Bactrim DS: TABLET : Strength - 800 mg-160 mg : ORAL Patient Dose: 1 tab(s) Oral 2 times a day (before meals). Augmentin: TABLET : Strength - 875 mg-125 mg : ORAL Patient Dose: 1 tab(s) Oral 2 times a day (with meals). VITAL SIGNS (00:09 ) VITAL SIGNS: BP: 129/91, Pulse: 89, Resp: 16 (Non-Labored), Temp: 98.2 (Oral), Pain: 9, O2 sat: 99 on Room Air, Time: 05/05/2016 00:09. NURSING ASSESSMENT: SKIN (00:13 WAPR) CONSTITUTIONAL: Patient arrives ambulatory, Gait steady, History obtained from patient, Patient appears comfortable, Patient cooperative, Patient alert, Oriented to person, place and time, Skin &a-1R&a+25V*p+0X*f8701A*c202B*c15G*c2P*p-0X&a-25V&a+1R Name: Avinash Smith Tito : 1990 M25 MedRec: [id number] AcctNum: [id number] Prepared: SunMay 05, 2016 01:15 by Interface Page 1 of 5 pMD [facility] EMERGENCY RECORD warm, Skin dry, Skin normal in color, Mucous membranes pink, Mucous membranes moist, Patient is well-groomed, Patient complains of Needs abscess repacked, Pt reports having abscess drained here previous night and told to return for repacking within 24hours. Pt is A&Ox4, NAD, breathing non-labored. PAIN: Left upper buttock, on a scale 0-10 patient rates pain as 9. SKIN: Skin assessment findings include skin warm, Skin dry, Skin normal in color, Notes: At left upper buttock fold, I&D site appears pink, scant drainage, purulent, no bleeding. SAFETY: Side rails up, Cart/Stretcher in lowest position, Family at bedside, Call light within reach, Hospital ID band on. NURSING PROCEDURE: DISCHARGE NOTE (01:09 ) DISCHARGE: Patient discharged to home, ambulating without assistance, family driving, accompanied by parent, Summary of Care printed/ provided, Patient requested and was provided an electronic copy of Discharge Instructions, Transition record given to patient, Discharge instructions given to patient, Simple or moderate discharge teaching performed, by Peg RN, Prescriptions given and instructions on side effects given, Medication reconciliation form given, Above person(s) verbalized understanding of discharge instructions and follow-up care, Notes: Patient instructed to follow up with PCP. Patient instructed to follow medication instructions. Patient instructed to follow discharge teaching. BELONGINGS: Belongings remain with patient, Valuables remain with patient. SAFETY: Side rails up, Cart/Stretcher in lowest position, Family at bedside, Call light within reach, Hospital ID band on. NURSING PROCEDURE: WOUND CARE (00:47 DEREK) PATIENT IDENTIFIER: Patient actively involved in identification process, Patient's identity verified by patient stating name, Patient's identity verified by patient stating date. WOUND CARE: Notes: wound repacked with 1/4 packing strip. Bandage with gauze applied following repacking. SAFETY: Side rails up, Cart/Stretcher in lowest position, Call light within reach, Hospital ID band on. ORDER DETAILS Order Name: WOUND CARE ED repack and dress wound, Status: Done, Time: 00:47 05/05/2016, User: DEREK, - Ordered for: DO Aranda Joseph, - Entered by: DO Aranda Joseph - SunMay 05, 2016 00:24, - Quantity: 1. MEDICATION ADMINISTRATION SUMMARY Drug Name: [place], Dose Ordered: 10 mg, Route: Oral, Status: Given, &a-1R&a+25V*p+0X*b0010J*c202B*c15G*c2P*p-0X&a-25V&a+1R Name: Avinash Smith : 1990 M25 MedRec: [id number] AcctNum: [id number] Prepared: SunMay 05, 2016 01:15 by Interface Page 2 of 5 pMD [facility] EMERGENCY RECORD Time: 01:00 05/05/2016, Drug Name: Motrin, Dose Ordered: 800 mg, Route: Oral, Status: Given, Time: 01:00 05/05/2016, Detailed record available in Medication Service section. MEDICATION SERVICE (01:00 [facility]) Motrin: Order: Motrin (ibuprofen) - Dose: 800 mg : Oral Schedule: Now Ordered by: Omer Aranda DO Entered by: Omer Aranda DO SunMay 05, 2016 00:59 Documented as given by: Peg Snow RN SunMay 05, 2016 01:00 Patient, Medication, Dose, Route and Time verified prior to administration. Amount given: 1 tab, Site: Medication administered P.O., Correct patient, time, route, dose and medication confirmed prior to administration, Patient advised of actions and side-effects prior to administration, Allergies confirmed and medications reviewed prior to administration, Patient in position of comfort, Side rails up, Cart in lowest position, Family at bedside, Call light in reach. [place]: Order: [place] (hydrocodone bitartrate/acetaminophen) - Dose: 10 mg : Oral Schedule: Now Ordered by: Omer Aranda DO Entered by: Omer Aranda DO SunMay 05, 2016 00:59 Documented as given by: Peg Snow RN SunMay 05, 2016 01:00 Patient, Medication, Dose, Route and Time verified prior to administration. Amount given: 1 tab, Site: Medication administered P.O., Correct patient, time, route, dose and medication confirmed prior to administration, Patient advised of actions and side-effects prior to administration, Allergies confirmed and medications reviewed prior to administration, Patient in position of comfort, Side rails up, Cart in lowest position, Family at bedside, Call light in reach. HPI WOUND CHECK (00:31 JPIP) CHIEF COMPLAINT: Patient presents for evaluation of Buttock, patient had I&D last night and is here for packing change. HISTORIAN: History provided by patient. LOCATION: Symptoms are localized. QUALITY: Pain is dull in nature. SEVERITY: Current severity of pain rated as 9/10. TIME COURSE: Symptoms are improving. ASSOCIATED WITH: No associated fever. EXACERBATED BY: Patient's condition exacerbated by walking, Patient's condition exacerbated by sitting. RELIEVED BY: Patient's condition relieved by nothing. ROS (00:41 JPIP) CONSTITUTIONAL: Historian denies fever. &a-1R&a+25V*p+0X*j3084M*c202B*c15G*c2P*p-0X&a-25V&a+1R Name: Avinash Smith : 1990 M25 MedRec: [id number] AcctNum: [id number] Prepared: SunMay 05, 2016 01:15 by Interface Page 3 of 5 pMD [facility] EMERGENCY RECORD GI: Historian denies nausea, denies vomiting. SKIN: Historian reports skin changes, reports skin lesions. NOTES: All systems reviewed, negative except as described above. PAST MEDICAL HISTORY MEDICAL HISTORY: No past medical history, Flu vaccine not up to date, Tetanus immunization up to date, Pneumococcal vaccine not up to date. (00:19 WJAN) MALE SURGICAL HISTORY: Surgical history of tonsillectomy, Notes: AND ADENOIDS. verified with patient on 05/05/16. (00:19 WJAN) PSYCHIATRIC HISTORY: No previous psychiatric history. (00:19 WJAN) SOCIAL HISTORY: Patient drinks socially, once a month, Patient denies drug use, Patient has no smoking history, Lives at home, with family. (00:19 WJAN) FAMILY HISTORY: Family history is non-contributory to this case. (00:19 WJAN) NOTES: Nursing records reviewed, Old chart reviewed, Medication list reviewed. (00:43 JPIP) PHYSICAL EXAM (00:41 JPIP) CONSTITUTIONAL: Vital signs reviewed, Patient afebrile, Pulse normal, Blood pressure, hypertensive, Respiratory rate normal, Patient appears in pain, in mild pain distress, Patient alert and oriented to person, place and time. HEAD: Head exam included findings of head atraumatic, normocephalic. EYES: Eye exam included findings of eyelids normal to inspection, Conjunctiva normal, Sclera normal, no periorbital ecchymosis, no periorbital edema, no periorbital erythema. RESPIRATORY CHEST: Respiratory exam included findings of no respiratory distress. NEURO: Donya coma scale 15. SKIN: Skin exam included findings of skin warm, dry, and normal in color, dressing has moderate blood and purulent material present. no active bleeding. packing removed. PSYCHIATRIC: Normal affect. EVENTS TRANSFER: Triage to Emergency Triage. (SunMay 05, 2016 00:11 WJAN) Emergency Triage to Emergency Room -04. (00:12 WJAN) Removed from Emergency Emergency Room -04. (01:09 WJAN) O2SAT INTERPRETATION (00:15 JPIP) O2SAT: Continuous pulse oximetry, Oxygen saturation 99%, on room air, Oxygen saturation interpretation: Normal, No intervention required. &a-1R&a+25V*p+0X*u1817U*c202B*c15G*c2P*p-0X&a-25V&a+1R Name: Avinash Smith : 1990 5 MedRec: [id number] AcctNum: [id number] Prepared: SunMay 05, 2016 01:15 by Interface Page 4 of 5 pMD [facility] EMERGENCY RECORD WOUND CHECK (00:43 JPIP) WOUND CHECK: Side and/or site verified, Patient identification confirmed, Sterile procedures observed, Verbal consent obtained, Wound check indicated for scheduled evaluation, Wound check to abscess performed, Patient tolerated the procedure well, packing removed and wound repack. PROBLEM LIST No recorded problems DIAGNOSIS (00:31 JPIP) FINAL: PRIMARY: wound check - packing change. DISPOSITION PATIENT: Disposition Type: Discharge, Disposition: *Discharge Home, Condition: Good. (00:31 JPIP) Patient left the department. (01: DEREK) INSTRUCTION (00:25 JPIP) DISCHARGE: POST OP WOUND CHECK, GENERAL. FOLLOWUP: Sarah Cedillo, [facility], [address] [place] [address], . SPECIAL: Follow up with PCP 48hours Finish all your antibiotics Return to the Emergency Department for increased symptoms problems or concerns Take acetaminophen or ibuprofen for pain. PRESCRIPTION (00:47 JPIP) Ultram: TABLET : 50 mg : ORAL : Quantity: 1-2 Unit: tab(s) Route: ORAL Schedule: every 8 hours PRN Dispense: 30 May substitute. Refills: No Refills . NOTES: for pain No refills. Howard: NIYA=DO Aranda Joseph WJAN=SHAWN Snow, Peg &a-1R&a+25V*p+0X*x5788U*c202B*c15G*c2P*p-0X&a-25V&a+1R Name: Avinash Smith : 1990 5 MedRec: [id number] AcctNum: [id number] Prepared: SunMay 05, 2016 01:15 by Interface Page 5 of 5 pMD MTDD
== END 2016-05-05 01:09 | disposition home or self-care (01) ==
LOC: BURERS 00:03
DX: L02.31 Cutaneous abscess of buttock (principal)
CPT/HCPCS: 99282

== ENCOUNTER 2016-05-06 13:22 | Emergency (ER) | payer SELFPAY ==
[2016-05-06] MEDS ORDERED: HYDROcodone/Acetaminophen 10/325 mg Tablet ONE (13:56)
[2016-05-06] MEDS ORDERED: Lidocaine 1% 20 ML MDV ONE (13:57)
--- NOTE | 2016-05-06 14:59 | ERRECORD ---
[facility] EMERGENCY RECORD HPI ABSCESS (13:48 WMEI) CHIEF COMPLAINT: Patient presents for evaluation of swelling, Patient presents for evaluation of pain. HISTORIAN: History provided by patient, History provided by patient's spouse. LOCATION: Symptoms are localized, gluteal cleft. QUALITY: Pain is dull in nature, Described as similar to previous episodes. SEVERITY: Maximum severity of pain rated as 9/10. TIME COURSE: Gradual onset of symptoms. ASSOCIATED WITH: No associated chills, No associated fever. EXACERBATED BY: Patient's condition exacerbated by movement. RELIEVED BY: Patient's condition relieved by nothing. ROS (13:49 WMEI) CONSTITUTIONAL: Historian denies chills, denies fever. EYES: Historian denies eye pain, denies eye discharge. ENT: Historian denies rhinorrhea, denies sore throat. CARDIOVASCULAR: Historian denies chest pain, no radiation. RESPIRATORY: Historian denies cough, denies shortness of breath. GI: Historian denies abdominal pain, denies nausea, denies vomiting. perirectal pain. MUSCULOSKELETAL: Historian denies joint redness, denies joint swelling. SKIN: Historian reports skin changes, reports skin lesions. fluctuance midline gluteal cleft proximal to rectum. NEUROLOGIC: Historian denies confusion, denies mental status changes. PSYCHIATRIC: Historian denies anxiety, denies depression. PAST MEDICAL HISTORY (13:37 LGIB) MEDICAL HISTORY: No past medical history, Flu vaccine not up to date, Tetanus immunization up to date, Pneumococcal vaccine not up to date. MALE SURGICAL HISTORY: Surgical history of tonsillectomy, Notes: AND ADENOIDS. PSYCHIATRIC HISTORY: No previous psychiatric history. SOCIAL HISTORY: Patient drinks socially, once a month, Patient denies drug use, Patient has no smoking history, Lives at home, with family. FAMILY HISTORY: Family history is non-contributory to this case. KNOWN ALLERGIES No Known Drug Allergies CURRENT MEDICATIONS (13:35 LGIB) Augmentin: TABLET : Strength - 875 mg-125 mg : ORAL &a-1R&a+25V*p+0X*e3313L*c202B*c15G*c2P*p-0X&a-25V&a+1R Name: Avinash Smith : 1990 M25 MedRec: [id number] AcctNum: [id number] Prepared: Sat May 06, 2016 14:57 by Interface Page 1 of 3 pMD [facility] EMERGENCY RECORD Patient Dose: 1 tab(s) Oral 2 times a day (with meals). Ultram: TABLET : Strength - 50 mg : ORAL Patient Dose: 1-2 tab(s) Oral every 8 hours PRN.for pain. VITAL SIGNS (13:32 LGIB) VITAL SIGNS: BP: 135/81, Pulse: 91, Resp: 18 (Non-Labored), Temp: 98.9 (Oral), Pain: 9, O2 sat: 100 on Room Air, Time: 05/06/2016 13:32. PHYSICAL EXAM (13:51 WMEI) CONSTITUTIONAL: Vital signs reviewed, Patient appears non toxic, Patient alert and oriented to person, place and time. HEAD: Head exam included findings of head atraumatic, normocephalic. EYES: Conjunctiva normal, Sclera normal. ENT: Nose exam normal, Pharynx exam normal. NECK: Neck exam included findings of normal range of motion, Trachea midline. RESPIRATORY CHEST: Breath sounds clear, Chest exam included findings of chest movement symmetrical. CARDIOVASCULAR: Cardiovascular exam included findings of heart rate regular rate and rhythm, Heart sounds normal. ABDOMEN MALE: Abdominal exam included findings of abdomen nontender, no distension, Rectal exam abnormal, erythema fluctuance mid gluteal cleft incision l medial buttocks free of drainage. BACK: Back exam included findings of normal inspection, range of motion normal. UPPER EXTREMITY: Upper extremity exam included findings of inspection normal, Range of motion normal, Motor strength normal. LOWER EXTREMITY: Lower extremity exam included findings of inspection normal, Range of motion normal, Motor strength normal. NEURO: [place] coma scale 15, Neuro exam findings include patient oriented to person, place and time, Speech normal, Gait normal. SKIN: Skin exam included findings of skin warm, dry, and normal in color. LYMPHATIC: Lymphatic exam normal. PSYCHIATRIC: Psychiatric exam included findings of patient oriented to person place and time, Normal affect, Judgment normal, Insight normal. MEDICATION ADMINISTRATION SUMMARY Drug Name: lidocaine (PF) injection, Dose Ordered: 10 mg, Route: Subcutaneous, Status: Ordered, Time: 13:48 05/06/2016, Drug Name: [place], Dose Ordered: 10 mg, Route: Oral, Status: Given, Time: 13:58 05/06/2016, Detailed record available in Medication Service section. PROBLEM LIST &a-1R&a+25V*p+0X*w2093G*c202B*c15G*c2P*p-0X&a-25V&a+1R Name: Avinash Smith : 1990 M25 MedRec: [id number] AcctNum: [id number] Prepared: Sat May 06, 2016 14:57 by Interface Page 2 of 3 pMD [facility] EMERGENCY RECORD No recorded problems DIAGNOSIS (14:28 WMEI) FINAL: PRIMARY: PILONIDAL CYST WITH ABSCESS. PRESCRIPTION (14:28 WMEI) acetaminophen-codeine: TABLET : 300 mg-30 mg : ORAL : Quantity: 1 Unit: tab(s) Route: ORAL Schedule: every 4 hours prn Dispense: 24 Unit: tab(s) May substitute. Refills: No Refills . NOTES: No refills. DISPOSITION PATIENT: Disposition Type: Discharge, Disposition: *Discharge Home. (14:28 WMEI) Patient left the department. (14:50 LGIB) Howard: LGIB=SHAWN Ulloa Lauren WMEI=DO Mena William &a-1R&a+25V*p+0X*p2059H*c202B*c15G*c2P*p-0X&a-25V&a+1R Name: Avinash Smith : 1990 M25 MedRec: [id number] AcctNum: [id number] Prepared: Justin May 06, 2016 14:57 by Interface Page 3 of 3 pMD MTDD
--- NOTE | 2016-05-06 15:03 | ERRECORD ---
[facility] EMERGENCY RECORD HPI ABSCESS (13:48 WMEI) CHIEF COMPLAINT: Patient presents for evaluation of swelling, Patient presents for evaluation of pain. HISTORIAN: History provided by patient, History provided by patient's spouse. LOCATION: Symptoms are localized, gluteal cleft. QUALITY: Pain is dull in nature, Described as similar to previous episodes. SEVERITY: Maximum severity of pain rated as 9/10. TIME COURSE: Gradual onset of symptoms. ASSOCIATED WITH: No associated chills, No associated fever. EXACERBATED BY: Patient's condition exacerbated by movement. RELIEVED BY: Patient's condition relieved by nothing. ROS (13:49 WMEI) CONSTITUTIONAL: Historian denies chills, denies fever. EYES: Historian denies eye pain, denies eye discharge. ENT: Historian denies rhinorrhea, denies sore throat. CARDIOVASCULAR: Historian denies chest pain, no radiation. RESPIRATORY: Historian denies cough, denies shortness of breath. GI: Historian denies abdominal pain, denies nausea, denies vomiting. perirectal pain. MUSCULOSKELETAL: Historian denies joint redness, denies joint swelling. SKIN: Historian reports skin changes, reports skin lesions. fluctuance midline gluteal cleft proximal to rectum. NEUROLOGIC: Historian denies confusion, denies mental status changes. PSYCHIATRIC: Historian denies anxiety, denies depression. PAST MEDICAL HISTORY (13:37 LGIB) MEDICAL HISTORY: No past medical history, Flu vaccine not up to date, Tetanus immunization up to date, Pneumococcal vaccine not up to date. MALE SURGICAL HISTORY: Surgical history of tonsillectomy, Notes: AND ADENOIDS. PSYCHIATRIC HISTORY: No previous psychiatric history. SOCIAL HISTORY: Patient drinks socially, once a month, Patient denies drug use, Patient has no smoking history, Lives at home, with family. FAMILY HISTORY: Family history is non-contributory to this case. KNOWN ALLERGIES No Known Drug Allergies CURRENT MEDICATIONS (13:35 LGIB) Augmentin: TABLET : Strength - 875 mg-125 mg : ORAL &a-1R&a+25V*p+0X*[id number]*c202B*c15G*c2P*p-0X&a-25V&a+1R Name: Avinash Smith : 1990 M25 MedRec: [id number] AcctNum: [id number] Prepared: Sat May 06, 2016 19:52 by Interface Page 1 of 3 pMD [facility] EMERGENCY RECORD Patient Dose: 1 tab(s) Oral 2 times a day (with meals). Ultram: TABLET : Strength - 50 mg : ORAL Patient Dose: 1-2 tab(s) Oral every 8 hours PRN.for pain. VITAL SIGNS (13:32 LGIB) VITAL SIGNS: BP: 135/81, Pulse: 91, Resp: 18 (Non-Labored), Temp: 98.9 (Oral), Pain: 9, O2 sat: 100 on Room Air, Time: 05/06/2016 13:32. PHYSICAL EXAM (13:51 WMEI) CONSTITUTIONAL: Vital signs reviewed, Patient appears non toxic, Patient alert and oriented to person, place and time. HEAD: Head exam included findings of head atraumatic, normocephalic. EYES: Conjunctiva normal, Sclera normal. ENT: Nose exam normal, Pharynx exam normal. NECK: Neck exam included findings of normal range of motion, Trachea midline. RESPIRATORY CHEST: Breath sounds clear, Chest exam included findings of chest movement symmetrical. CARDIOVASCULAR: Cardiovascular exam included findings of heart rate regular rate and rhythm, Heart sounds normal. ABDOMEN MALE: Abdominal exam included findings of abdomen nontender, no distension, Rectal exam abnormal, erythema fluctuance mid gluteal cleft incision l medial buttocks free of drainage. BACK: Back exam included findings of normal inspection, range of motion normal. UPPER EXTREMITY: Upper extremity exam included findings of inspection normal, Range of motion normal, Motor strength normal. LOWER EXTREMITY: Lower extremity exam included findings of inspection normal, Range of motion normal, Motor strength normal. NEURO: Parkin coma scale 15, Neuro exam findings include patient oriented to person, place and time, Speech normal, Gait normal. SKIN: Skin exam included findings of skin warm, dry, and normal in color. LYMPHATIC: Lymphatic exam normal. PSYCHIATRIC: Psychiatric exam included findings of patient oriented to person place and time, Normal affect, Judgment normal, Insight normal. MEDICATION ADMINISTRATION SUMMARY Drug Name: lidocaine (PF) injection, Dose Ordered: 10 mg, Route: Subcutaneous, Status: Ordered, Time: 13:48 05/06/2016, Drug Name: [place], Dose Ordered: 10 mg, Route: Oral, Status: Given, Time: 13:58 05/06/2016, Detailed record available in Medication Service section. PROBLEM LIST &a-1R&a+25V*p+0X*[id number]*c202B*c15G*c2P*p-0X&a-25V&a+1R Name: Avinash Smith : 1990 M25 MedRec: [id number] AcctNum: [id number] Prepared: Justin May 06, 2016 19:52 by Interface Page 2 of 3 pMD [facility] EMERGENCY RECORD No recorded problems DIAGNOSIS (14:28 WMEI) FINAL: PRIMARY: PILONIDAL CYST WITH ABSCESS. PRESCRIPTION (14:28 WMEI) acetaminophen-codeine: TABLET : 300 mg-30 mg : ORAL : Quantity: 1 Unit: tab(s) Route: ORAL Schedule: every 4 hours prn Dispense: 24 Unit: tab(s) May substitute. Refills: No Refills . NOTES: No refills. DISPOSITION PATIENT: Disposition Type: Discharge, Disposition: *Discharge Home. (14:28 WMEI) Patient left the department. (14:50 LGIB) Howard: LGIB=SHAWN Ulloa Lauren WMEI=DO Mena William &a-1R&a+25V*p+0X*[id number]*c202B*c15G*c2P*p-0X&a-25V&a+1R Name: Avinash Smith : 1990 M25 MedRec: [id number] AcctNum: [id number] Prepared: Justin May 06, 2016 19:52 by Interface Page 3 of 3 pMD MTDD
--- NOTE | 2016-05-06 15:05 | PICIS ---
[facility] EMERGENCY RECORD TRIAGE (13:34 LGIB) TRIAGE NOTES: abscess to sacrum, on amoxicillin. (13:34 LGIB) PATIENT: NAME: Avinash Smith, AGE: 25, GENDER: male, : [facility] 1990, TIME OF GREET: Sat May 06, 2016 13:23, PREFERRED LANGUAGE: Polish, ETHNICITY: Not or , ECODE BILLING MAP: [facility], SSN: [id number], Zip Code: [address], KG WEIGHT: 136.08, PHONE: , , , PERSON ID: [id number], PAYMENT: [employer] Self Pay, PCP: Sarah Cedillo. (13:34 LGIB) COMPLAINT: abscess. (13:34 LGIB) ADMISSION: URGENCY: 3 Urgent, ADMISSION SOURCE: Home, TRANSPORT: CAR, BED: ER -04. (13:34 LGIB) SIRS SCORING: Heart Rate 55-109 (0), Temp range 96.8-101.1 (0), respiratory rate 12-24 (0), Mental Status altered: no (0), Total SIRS Score 0. (13:37 LGIB) PROVIDERS: TRIAGE NURSE: Raysa Ulloa RN. (13:34 LGIB) VITAL SIGNS: BP 135/81, Pulse 91, Resp 18, (Non-Labored), Temp 98.9, (Oral), Pain 9, O2 Sat 100, on Room Air, Time 05/06/2016 13:32. (13:32 LGIB) PREVIOUS VISIT ALLERGIES: No Known Drug Allergies. (13:34 LGIB) No Known Drug Allergies. (13:37 LGIB) KNOWN ALLERGIES No Known Drug Allergies CURRENT MEDICATIONS (13:35 LGIB) Augmentin: TABLET : Strength - 875 mg-125 mg : ORAL Patient Dose: 1 tab(s) Oral 2 times a day (with meals). Ultram: TABLET : Strength - 50 mg : ORAL Patient Dose: 1-2 tab(s) Oral every 8 hours PRN.for pain. VITAL SIGNS (13:32 LGIB) VITAL SIGNS: BP: 135/81, Pulse: 91, Resp: 18 (Non-Labored), Temp: 98.9 (Oral), Pain: 9, O2 sat: 100 on Room Air, Time: 05/06/2016 13:32. NURSING ASSESSMENT: SKIN (13:45 LGIB) CONSTITUTIONAL: Complex assessment performed, Patient arrives ambulatory, Gait steady, History obtained from patient, Patient appears, uncomfortable, Patient cooperative, Patient alert, Oriented to person, place and time, Skin warm, Skin dry, Skin normal in color, Mucous membranes pink, Mucous membranes moist, Patient is well-groomed, Patient complains of ABSCESS. PAIN: tender pain, on a scale 0-10 patient rates pain as 9, PAIN WORSE ON PALPATION OR SLIGHT TOUCH TO AREA, Nothing has been tried to alleviate the pain. SKIN: Inspection findings include signs of infection, to SACRUM, 2 RAISED AREAS TO SACRUM BETWEEN BUTTOCKS. &a-1R&a+25V*p+0X*b9477F*c202B*c15G*c2P*p-0X&a-25V&a+1R Name: Avinash Smith Tito : 1990 M25 MedRec: [id number] AcctNum: [id number] Prepared: Sat May 06, 2016 19:52 by Interface Page 1 of 5 D [facility] EMERGENCY RECORD AREAS ARE RED AND WARM. EACH RAISED AREA IS ABOUT 3cm IN DIAMETER. SAFETY: Side rails up, Cart/Stretcher in lowest position, Family at bedside, Call light within reach, Hospital ID band on. NURSING PROCEDURE: DISCHARGE NOTE (14:50 LGIB) DISCHARGE: Patient discharged to home, ambulating without assistance, family driving, accompanied by //partner, Summary of Care printed/ provided, Patient requested and was provided an electronic copy of Discharge Instructions, Discharge instructions given to patient, Simple or moderate discharge teaching performed, Prescriptions given and instructions on side effects given, Above person(s) verbalized understanding of discharge instructions and follow-up care, Patient treated and evaluated by physician. BELONGINGS: Belongings and valuables with patient at time of discharge include:, Belongings remain with patient, Valuables remain with patient. NURSING PROCEDURE: INCISION AND DRAINAGE TIMEOUT: Prior to procedure, correct patient verified by, patient stating name, patient stating date, hospital identification bracelet, family member, Correct procedure verified, Correct site verified, Correct equipment utilized, Physician performing procedure Dr. MENA, Witnessed by SHAWN DE LEON. (14:20 LGIB) I & D: Incision and drainage indicated to promote healing, Incision and drainage performed to the sacral area, by Dr. MENA, large amount, of purulent fluid drained, Simple dressing applied, using 4x4 dressing, packed with 1/4 inch plain packing. (14:20 LGIB) NOTES: Notes: ASSISTED BY LVN. SARAN (16:02 LGIB) ORDER DETAILS Order Name: chart element #1, Status: Active, Time: 14:20 05/06/2016, User: System, - Ordered for: DO Mena William, - Entered by: SHAWN Ulloa Lauren - Justin May 06, 2016 14:20, - Quantity: 1, Order Name: chart element #4, Status: Active, Time: 14:20 05/06/2016, User: System, - Ordered for: DO Mena William, - Entered by: SHAWN Ulloa Lauren - Justin May 06, 2016 14:20, - Quantity: 1. MEDICATION ADMINISTRATION SUMMARY Drug Name: lidocaine (PF) injection, Dose Ordered: 10 mg, Route: Subcutaneous, Status: Ordered, Time: 13:48 05/06/2016, Drug Name: [place], Dose Ordered: 10 mg, Route: Oral, Status: Given, Time: 13:58 05/06/2016, Detailed record available in Medication &a-1R&a+25V*p+0X*h3434A*c202B*c15G*c2P*p-0X&a-25V&a+1R Name: Avinash Smith : 1990 M25 MedRec: [id number] AcctNum: [id number] Prepared: Sat May 06, 2016 19:52 by Interface Page 2 of 5 pMD [facility] EMERGENCY RECORD Service section. MEDICATION SERVICE lidocaine (PF) injection: Order: lidocaine (PF) injection (lidocaine HCl/preservative free) - Dose: 10 mg : Subcutaneous Schedule: Now Ordered by: Johny Mena DO Entered by: Johny Mena DO Sat May 06, 2016 13:48 , Acknowledged by: Raysa Ulloa RN Sat May 06, 2016 13:54. [place]: Order: [place] (hydrocodone bitartrate/acetaminophen) - Dose: 10 mg : Oral Schedule: Now Ordered by: Johny Mena DO Entered by: Johny Mena DO Sat May 06, 2016 13:47 , Acknowledged by: Raysa Ulloa RN Sat May 06, 2016 13:54 Documented as given by: Raysa Ulloa RN Sat May 06, 2016 13:58 Patient, Medication, Dose, Route and Time verified prior to administration. Site: Medication administered P.O., Correct patient, time, route, dose and medication confirmed prior to administration, Patient advised of actions and side-effects prior to administration, Allergies confirmed and medications reviewed prior to administration, Patient in position of comfort, Side rails up, Cart in lowest position, Family at bedside. HPI ABSCESS (13:48 WMEI) CHIEF COMPLAINT: Patient presents for evaluation of swelling, Patient presents for evaluation of pain. HISTORIAN: History provided by patient, History provided by patient's spouse. LOCATION: Symptoms are localized, gluteal cleft. QUALITY: Pain is dull in nature, Described as similar to previous episodes. SEVERITY: Maximum severity of pain rated as 9/10. TIME COURSE: Gradual onset of symptoms. ASSOCIATED WITH: No associated chills, No associated fever. EXACERBATED BY: Patient's condition exacerbated by movement. RELIEVED BY: Patient's condition relieved by nothing. ROS (13:49 WMEI) CONSTITUTIONAL: Historian denies chills, denies fever. EYES: Historian denies eye pain, denies eye discharge. ENT: Historian denies rhinorrhea, denies sore throat. CARDIOVASCULAR: Historian denies chest pain, no radiation. RESPIRATORY: Historian denies cough, denies shortness of breath. GI: Historian denies abdominal pain, denies nausea, denies vomiting. perirectal pain. MUSCULOSKELETAL: Historian denies joint redness, denies joint swelling. &a-1R&a+25V*p+0X*n6311V*c202B*c15G*c2P*p-0X&a-25V&a+1R Name: Avinash Smith : 1990 M25 MedRec: [id number] AcctNum: [id number] Prepared: Sat May 06, 2016 19:52 by Interface Page 3 of 5 pMD [facility] EMERGENCY RECORD SKIN: Historian reports skin changes, reports skin lesions. fluctuance midline gluteal cleft proximal to rectum. NEUROLOGIC: Historian denies confusion, denies mental status changes. PSYCHIATRIC: Historian denies anxiety, denies depression. PAST MEDICAL HISTORY (13:37 LGIB) MEDICAL HISTORY: No past medical history, Flu vaccine not up to date, Tetanus immunization up to date, Pneumococcal vaccine not up to date. MALE SURGICAL HISTORY: Surgical history of tonsillectomy, Notes: AND ADENOIDS. PSYCHIATRIC HISTORY: No previous psychiatric history. SOCIAL HISTORY: Patient drinks socially, once a month, Patient denies drug use, Patient has no smoking history, Lives at home, with family. FAMILY HISTORY: Family history is non-contributory to this case. PHYSICAL EXAM (13:51 WMEI) CONSTITUTIONAL: Vital signs reviewed, Patient appears non toxic, Patient alert and oriented to person, place and time. HEAD: Head exam included findings of head atraumatic, normocephalic. EYES: Conjunctiva normal, Sclera normal. ENT: Nose exam normal, Pharynx exam normal. NECK: Neck exam included findings of normal range of motion, Trachea midline. RESPIRATORY CHEST: Breath sounds clear, Chest exam included findings of chest movement symmetrical. CARDIOVASCULAR: Cardiovascular exam included findings of heart rate regular rate and rhythm, Heart sounds normal. ABDOMEN MALE: Abdominal exam included findings of abdomen nontender, no distension, Rectal exam abnormal, erythema fluctuance mid gluteal cleft incision l medial buttocks free of drainage. BACK: Back exam included findings of normal inspection, range of motion normal. UPPER EXTREMITY: Upper extremity exam included findings of inspection normal, Range of motion normal, Motor strength normal. LOWER EXTREMITY: Lower extremity exam included findings of inspection normal, Range of motion normal, Motor strength normal. NEURO: Donya coma scale 15, Neuro exam findings include patient oriented to person, place and time, Speech normal, Gait normal. SKIN: Skin exam included findings of skin warm, dry, and normal in color. LYMPHATIC: Lymphatic exam normal. PSYCHIATRIC: Psychiatric exam included findings of patient oriented to person place and time, Normal affect, Judgment normal, &a-1R&a+25V*p+0X*t5220M*c202B*c15G*c2P*p-0X&a-25V&a+1R Name: Avinash Smith : 1990 [address]: [id number] AcctNum: [id number] Prepared: Sat May 06, 2016 19:52 by Interface Page 4 of 5 pMD [facility] EMERGENCY RECORD Insight normal. EVENTS TRANSFER: Triage to Emergency Emergency Room -04. (Sat May 06, 2016 13:34 LGIB) Removed from Emergency Emergency Room -04. (14:50 LGIB) INCISION AND DRAINAGE (14:26 WMEI) INCISION AND DRAINAGE: Side and/or site verified, Patient identification confirmed, Sterile procedures observed, Verbal consent obtained, Incision and drainage indicated for cutaneous abscess, There are no contraindications, Patient medicated prior to procedure, 1% Lidocaine without epinephrine used, 5 mLs, Incision was made over area of fluctuance, Explored for loculations, Packed with sterile gauze, Drained pus, Amount (mLs) 50, Tetanus status up to date, Patient tolerated the procedure with difficulty, copious pus packed recommend surgical consult. PROBLEM LIST No recorded problems DIAGNOSIS (14:28 WMEI) FINAL: PRIMARY: PILONIDAL CYST WITH ABSCESS. DISPOSITION PATIENT: Disposition Type: Discharge, Disposition: *Discharge Home. (14:28 WMEI) Patient left the department. (14:50 LGIB) INSTRUCTION (14:29 WMEI) DISCHARGE: PILONIDAL CYST, INFECTED (I AND D). FOLLOWUP: Sarah Cedillo, [facility], [address] [place] [id number], . SPECIAL: Follow-up with your PCP/SURGEON. PRESCRIPTION (14:28 WMEI) acetaminophen-codeine: TABLET : 300 mg-30 mg : ORAL : Quantity: 1 Unit: tab(s) Route: ORAL Schedule: every 4 hours prn Dispense: 24 Unit: tab(s) May substitute. Refills: No Refills . NOTES: No refills. IMAGING (15:57 LGIB) *DISCHARGE INSTRUCTIONS RECEIPT: Image captured from scanner. *SUPPLY CHARGE SHEET: Image captured from scanner. ADMIN (19:47 WMEI) DIGITAL SIGNATURE: DO Mena William. Howard: LGIB=SHAWN Ulloa, Raysa WMEI=DO Mena William &a-1R&a+25V*p+0X*[id number]*c202B*c15G*c2P*p-0X&a-25V&a+1R Name: Avinash Smith : 1990 M25 MedRec: [id number] AcctNum: [id number] Prepared: Justin May 06, 2016 19:52 by Interface Page 5 of 5 pMD MTDD
== END 2016-05-06 14:57 | disposition home or self-care (01) ==
LOC: BURERS 13:22
DX: L05.01 Pilonidal cyst with abscess (principal); Z79.2 Long term (current) use of antibiotics
CPT/HCPCS: 10080; J2001

== ENCOUNTER 2018-08-02 05:34 | Emergency (ER) | payer OTHER, SELFPAY ==
[2018-08-02] MEDS ORDERED: Acetaminophen 500 MG TAB ONE (06:25)
[2018-08-02] MEDS ORDERED: Ibuprofen 800 MG TAB ONE (06:25)
--- NOTE | 2018-08-02 07:51 | RAD ---
LEFT WRIST 3 VIEWS: Date: 08/02/18 No fracture seen. Carpal relationships seem normal. All bones appear intact. IMPRESSION: No acute findings. POS: HOME
== END 2018-08-02 06:41 | disposition home or self-care (01) ==
LOC: BURERS 05:34
DX: S63.502A Unspecified sprain of left wrist, initial encounter (principal); V43.53XA Car driver injured in collision with pick-up truck in traffic accident, initial encounter
CPT/HCPCS: G0390

== ENCOUNTER 2020-08-26 03:31 | Emergency (ER) | payer OTHER ==
[2020-08-26] MEDS ORDERED: Tetracaine 0.5% PF 4 ML BOT ONE (03:41)
[2020-08-26] MEDS ORDERED: Fluorescein Opthalmic Strip ONE (03:41)
== END 2020-08-26 03:50 | disposition home or self-care (01) ==
LOC: BURERS 03:31
DX: H16.133 Photokeratitis, bilateral (principal)
CPT/HCPCS: 99283

== ENCOUNTER 2021-01-19 21:41 | Emergency (ER) | payer OTHER ==
[2021-01-19] MEDS ORDERED: Dicyclomine 20 MG TAB ONE (22:05)
[2021-01-19 22:26] LABS: #Basophils 0.2 thou/uL (0.0-0.2); #Eosinphils 0.1 thou/uL (0.0-0.7); #Lymphocytes 3.1 thou/uL (1.20-3.40); #Monocytes 0.8 thou/uL (0.11-0.59); #Neutrophils 3.7 thou/uL (1.40-6.50); %Basophils 2.1 % (0.0-1.0); %Eosinophils 1.7 % (0.0-10.0); %Lymphocytes 39.2 % (21.0-51.0); %Monocytes 10.2 % (0.0-10.0); %Neutrophils 46.9 % (42.0-75.0); Hemoglobin 14.8 g/dL (14.0-18.0); Mean Corpuscular HGB CONC 35.1 g/dL (32.0-36.0); Mean Corpuscular Hemoglobin 30.1 pg (27.0-31.0); Mean Corpuscular Volume 85.8 fL (78.0-98.0); Mean Platelet Volume 7.3 fL (7.4-10.4); Platelet Count 194 thou/uL (130-400); RBC Distribution Width 11.5 % (11.5-14.5); Red Blood Cell (RBC) Count 4.92 mill/uL (4.70-6.10)
[2021-01-19 22:40] LABS: ALT (SGPT) 49 U/L (8-55); AST (SGOT) 25 U/L (5-34); Alkaline Phosphatase 62 U/L (40-110); Anion Gap 13 mmol/L (10-20); BUN (Urea Nitrogen) 11 mg/dL (8.9-20.6); Bilirubin, Total 0.4 mg/dL (0.2-1.2); Calc. Creatinine Clearance 0 mL/min (70-130); Calcium 9.3 mg/dL (7.8-10.44); Carbon Dioxide 25 mmol/L (22-29); Chloride 106 mmol/L (98-107); Globulin 3.2 g/dL (2.4-3.5); Glucose 95 mg/dL (70-105); Lipase 47 U/L (8-78); Potassium 3.8 mmol/L (3.5-5.1); Protein, Total 7.2 g/dL (6.0-8.3); Sodium 140 mmol/L (136-145)
[2021-01-19] MEDS ORDERED: HYDROcodone/Acetaminophen 5/325 mg Tablet ONE (23:05)
[2021-01-20 00:23] LABS: Bilirubin Negative (Negative); Blood, Urine Negative (Negative); Clarity Clear (Clear); Glucose, Urine (Dipstick) Negative (Negative); Ketone, Urine Negative (Negative); Leukocyte Negative (Negative); Nitrite Negative (Negative); Protein, Urine (Dipstick) Negative (Neg-Trace); Specific Gravity, Urine 1.025 (1.005-1.030)
== END 2021-01-19 23:10 | disposition home or self-care (01) ==
LOC: BURERS 21:41
DX: K80.50 Calculus of bile duct without cholangitis or cholecystitis without obstruction (principal)
CPT/HCPCS: 80053; 81003; 83690; 85025; 99284

== ENCOUNTER 2021-07-09 19:30 | Emergency (ER) | payer OTHER, SELFPAY ==
[2021-07-09] MEDS ORDERED: Iopamidol 370 76% 100 ML VIAL FS ONE (19:31)
[2021-07-09 20:22] LABS: #Basophils 0.2 thou/uL (0.0-0.2); #Eosinphils 0.2 thou/uL (0.0-0.7); #Lymphocytes 3.8 thou/uL (1.20-3.40); #Monocytes 0.8 thou/uL (0.11-0.59); #Neutrophils 4.9 thou/uL (1.40-6.50); %Basophils 2.2 % (0.0-1.0); %Eosinophils 2.1 % (0.0-10.0); %Lymphocytes 38.3 % (21.0-51.0); %Monocytes 8.1 % (0.0-10.0); %Neutrophils 49.4 % (42.0-75.0); Hemoglobin 14.7 g/dL (14.0-18.0); Mean Corpuscular HGB CONC 34.4 g/dL (32.0-36.0); Mean Corpuscular Hemoglobin 30.4 pg (27.0-31.0); Mean Corpuscular Volume 88.2 fL (78.0-98.0); Mean Platelet Volume 8.2 fL (7.4-10.4); Platelet Count 212 thou/uL (130-400); RBC Distribution Width 12.2 % (11.5-14.5); Red Blood Cell (RBC) Count 4.82 mill/uL (4.70-6.10); White Blood Cell (WBC) Count 9.9 thou/uL (4.8-10.8)
[2021-07-09 20:38] LABS: ALT (SGPT) 59 U/L (8-55); AST (SGOT) 24 U/L (5-34); Albumin 4.2 g/dL (3.5-5.0); Alkaline Phosphatase 58 U/L (40-110); Anion Gap 14 mmol/L (10-20); BUN (Urea Nitrogen) 10 mg/dL (8.9-20.6); Bilirubin, Total 0.5 mg/dL (0.2-1.2); Calc. Creatinine Clearance 0 mL/min (70-130); Calcium 8.8 mg/dL (7.8-10.44); Carbon Dioxide 24 mmol/L (22-29); Chloride 108 mmol/L (98-107); Glucose 89 mg/dL (70-105); Lipase 25 U/L (8-78); Potassium 4.2 mmol/L (3.5-5.1); Protein, Total 7.2 g/dL (6.0-8.3); Sodium 142 mmol/L (136-145)
[2021-07-09] MEDS ORDERED: traMADol HCl 50 MG TAB ONE (20:57)
[2021-07-09] MEDS ORDERED: Dicyclomine 20 MG TAB ONE (20:58)
== END 2021-07-09 21:18 | disposition home or self-care (01) ==
LOC: BURERS 19:30
DX: K80.50 Calculus of bile duct without cholangitis or cholecystitis without obstruction (principal); M51.36 Other intervertebral disc degeneration, lumbar region; I10 Essential (primary) hypertension
CPT/HCPCS: 74177; 80053; 83690; 85025; Q9967

== ENCOUNTER 2024-01-02 01:21 | Emergency (ER) | payer SELFPAY ==
[2024-01-02] MEDS ORDERED: Tetracaine 0.5% PF 4 ML BOT ONE (01:53)
[2024-01-02] MEDS ORDERED: Erythromycin Base 0.5% Ophth Oint 3.5 gm Tube ONE (02:01)
== END 2024-01-02 02:10 | disposition home or self-care (01) ==
LOC: BURERS 01:21
DX: H16.133 Photokeratitis, bilateral (principal); I10 Essential (primary) hypertension
CPT/HCPCS: 99283